=== PATIENT | male | born 1985 | race Caucasian/White ===

== ENCOUNTER 2021-10-16 10:38 | Emergency (ER) | payer BC, SELFPAY ==
[2021-10-16 11:04] VITALS: BP 149/79; PULSE 64; RESP 14; TEMP 36.8; O2SAT 98; BMI 42.2
--- NOTE | 2021-10-16 12:17 | W.ED.ANXIETY ---
HPI - Anxiety General: Chief Complaint: Anxiety Stated Complaint: Anxiety Time Seen by Provider: 10/16/21 11:55 Source: patient and family Mode of arrival: ambulatory Limitations: no limitations History of Present Illness: Patient is a 36-year-old male who presents to ED today with complaints of, what he has been told is, anxiety. Patient has significant other state patient has had symptoms intermittently over the past year where he feels anxious, shaky, has some chest discomforts, some blurry vision, and dizziness. States they have received multiple work-ups from specialists including neurology and cardiology and have been cleared from them and have been told it is secondary to anxiety. Patient states he takes xanex, fluoxetine, and olanzapine. He states his PCP/psychiatrist is slowly tapering him off his olanzapine. Patient states over the past few days he does not feel like his medications are working. He has complained of a headache and some dizziness. He does not have any chest pain, shortness of breath, difficulty breathing, palpitations currently. MD complaint: anxiety Onset (ago): year(s) Quality: intermittent Place: home History of similar episodes: Yes Provoking factors: none known Relieving factors: medication (states usually when they adjust his medications they work for 6-8 months) Exacerbating factors: nothing Associated symptoms: Reports headache(s); Deny chest pain, chills, confusion, fever(s), malaise, nausea, palpitations, syncope or vomiting Review of Systems Const: Denies: fever(s), chills, body aches, fatigue or malaise Card: Denies: chest pain, palpitations, irregular heart rhythm, edema, swelling of feet/ankles, lightheadedness, syncope, pre-syncope, dyspnea on exertion, orthopnea, leg pain with exertion or acrocyanosis Resp: Denies: dyspnea GI: Denies: abdominal pain, nausea, vomiting or diarrhea : Denies: flank pain or dysuria Musc: Denies: neck pain, back pain, extremity pain or joint pain Skin/Breast: Denies: rash Neuro: Reports: headache(s) and dizziness; Denies: numbness in extremities, weakness in extremities, sensory changes, difficulty walking, frequent falls or confusion Physical Exam Const: COMMON NORMALS: no acute distress, patient oriented x3, no limitations and alert GENERAL APPEARANCE: cooperative NUTRITIONAL APPEARANCE: obese ORIENTATION/CONSCIOUSNESS: Yes awake, Yes oriented to person, Yes oriented to place and Yes oriented to time HENMT: COMMON NORMALS: normocephalic and atraumatic HEAD & SCALP: normal to inspection, normocephalic and atraumatic Resp: COMMON NORMALS: normal respiratory effort and clear to auscultation bilaterally AUSCULTATION: clear to auscultation bilaterally Cardio: COMMON NORMALS: regular rate and regular rhythm RATE: regular rate RHYTHM: regular rhythm Extremity: COMMON NORMALS: normal to inspection, full ROM, capillary refill normal, no calf tenderness and no pedal edema GENERAL: Yes normal exam except as noted Neuro: JOHN COMA SCALE: document GCS findings Henefer coma scale eye opening: Spontaneous John coma scale verbal response: Orientated Henefer coma scale motor response: Obey commands John coma scale total score: 15 COMMON NORMALS: patient oriented x3, CN's II-XII intact bilaterally, moves all extremities, no focal motor deficits, no sensory deficits noted and gait normal SENSORIUM/ORIENTATION: Yes alert, Yes oriented to person, Yes oriented to place and Yes oriented to time Skin: COMMON NORMALS: no rashes or lesions noted GENERAL SKIN EXAM: no rashes or lesions noted Course Vital Signs: Vital signs: Vital Signs Temperature 98.2 F 10/16/21 11:04 Pulse Rate 64 10/16/21 15:15 Respiratory Rate 16 10/16/21 15:15 Blood Pressure 109/73 10/16/21 15:15 Pulse Oximetry 97 10/16/21 15:15 Oxygen Delivery Me thod 10/16/21 15:15 MDM - Anxiety Medical Decision Making Most of patient's symptoms seem fairly chronic for him. He was concerned in regards to the headache and dizziness. His vital signs are stable upon arrival. Work-up here is unremarkable. His head CT is negative. We discussed possibly increasing his fluoxetine however patient states he would like to follow-up with his PCP/psychiatrist for this. I think this is a reasonable plan. Patient has had very extensive specialty work-ups in regards to his symptoms and I do not feel like repeated evaluation from ED today is warranted. Return to ED precautions given. Lab Data : 10/16/21 13:16 10/16/21 13:[address] 10/16/21 13:03 IMPRESSION: No acute intracranial abnormality. Laboratory Results WBC 7.7 10^3/uL (4.0-10.0) 10/16/21 13:16 RBC 4.91 10^6/uL (4.1-5.3) 10/16/21 13:16 Hgb 15.2 g/dL (11.7-16.6) 10/16/21 13:16 Hct 44.7 % (42.0-52.0) 10/16/21 13:16 MCV 91.0 fl (80-94) 10/16/21 13:16 MCH 31.0 pg (28.0-34.0) 10/16/21 13:16 MCHC 34.0 g/dL (30.0-36.0) 10/16/21 13:16 RDW 13.2 % (12.1-15.1) 10/16/21 13:16 Plt Count 302 10^3/cmm (130-400) 10/16/21 13:16 MPV 9.1 fL (7.4-10.4) 10/16/21 13:16 Neut % (Auto) 80.1 % 10/16/21 13:16 Lymph % (Auto) 10.2 % 10/16/21 13:16 [place] % (Auto) 8.2 % 10/16/21 13:16 Eos % (Auto) 0.8 % 10/16/21 13:16 Baso % (Auto) 0.3 % 10/16/21 13:16 Neut # (Auto) 6.14 10^3/uL (1.8-7.7) 10/16/21 13:16 Lymph # (Auto) 0.8 10^3/uL (0.8-4.8) 10/16/21 13:16 [place] # (Auto) 0.6 10^3/uL (0.2-0.9) 10/16/21 13:16 Eos # (Auto) 0.1 10^3/uL (0.0-0.8) 10/16/21 13:16 Baso # (Auto) 0.0 10^3/uL (0.0-0.1) 10/16/21 13:16 Nucleated RBC % (auto) 0 % 10/16/21 13:16 Nucleated RBCs # 0.0 /100WBC 10/16/21 13:16 Sodium 139 mmol/L (136-145) 10/16/21 13:16 Potassium 4.4 mmol/L (3.5-5.1) 10/16/21 13:16 Chloride 104 mmol/L (98-107) 10/16/21 13:16 Carbon Dioxide 23 mmol/L (22-29) 10/16/21 13:16 Anion Gap 16.4 (5-19) 10/16/21 13:16 BUN 11 mg/dL (6-20) 10/16/21 13:16 Creatinine 0.6 mg/dL (0.7-1.2) L 10/16/21 13:16 GFR Calculation 150.8 mL/min (90-130) H 10/16/21 13:16 Glucose 99 mg/dL (65-115) 10/16/21 13:16 Calculated Osmolality 287 mOsm/kg (285-295) 10/16/21 13:16 Calcium 9.5 mg/dL (8.5-10.5) 10/16/21 13:16 Total Bilirubin 0.2 mg/dL (0.15-1.2) 10/16/21 13:16 AST 17 U/L (0-40) 10/16/21 13:16 ALT 29 U/L (0-41) 10/16/21 13:16 Alkaline Phosphatase 58 IU/L (40-130) 10/16/21 13:16 Total Protein 6.9 g/dL (6.6-8.7) 10/16/21 13:16 Albumin 4.1 g/dL (3.5-5.2) 10/16/21 13:16 Globulin 2.8 g/dL (1.3-4.6) 10/16/21 13:16 Urine Color Yellow (Yellow) 10/16/21 13:21 Urine Appearance Clear (CLEAR) 10/16/21 13:21 Urine pH 8 (5-7) H 10/16/21 13:21 Ur Specific [place] 1.010 (1.005-1.030) 10/16/21 13:21 Urine Protein Neg (Negative) 10/16/21 13:21 Urine Glucose (UA) 1+ (Normal) H 10/16/21 13:21 Urine Ketones Negative (Negative) 10/16/21 13:21 Urine Blood Neg (Negative) 08/08/22 13:21 Urine Nitrate Negative (Negative) 10/16/21 13:21 Urine Bilirubin Neg (Negative) 10/16/21 13:21 Prot Sulfosalicylic Acd Negative (Negative) 10/16/21 13:21 Urine Urobilinogen Norm mg/dL (Negative) 10/16/21 13:21 Ur Leukocyte Esterase Negative (Negative) 10/16/21 13:21 Discharge Plan Discharge Patient Disposition: Home Clinical Impression: Dizziness, Anxiety Condition: Stable Discharge Orders: Discharge ED (Routine); Ordered 10/16/21 Ordered By: Inocencia Rogers Coding Level of Care Code ED Computer Scientist for Wilmer Jones
[2021-10-16 12:53] VITALS: BP 122/76; PULSE 69; RESP 16; O2SAT 96
--- NOTE | 2021-10-16 13:03 | CTR_ITS ---
PROCEDURE INFORMATION: Exam: CT Head Without Contrast Exam date and time: 10/16/2021 2:31 PM Age: 36 years old Clinical indication: Pain; Headache not specified; Additional info: MCNULTY, dizziness TECHNIQUE: Imaging protocol: Computed tomography of the head without contrast. Radiation optimization: All CT scans at this facility use at least one of these dose optimization techniques: automated exposure control; mA and/or kV adjustment per patient size (includes targeted exams where dose is matched to clinical indication); or iterative reconstruction. COMPARISON: No relevant prior studies available. RADIATION DOSE METRICS: Total DLP (mGy-cm): 1028.18 FINDINGS: Brain: Normal. No hemorrhage. Unremarkable white matter. No mass effect. Cerebral ventricles: No ventriculomegaly. Paranasal sinuses: Visualized sinuses are unremarkable. No fluid levels. Mastoid air cells: Visualized mastoid air cells are well aerated. Bones/joints: Unremarkable. No acute fracture. Soft tissues: Unremarkable. CT/CT head wo con* [id number] IMPRESSION: No acute intracranial abnormality.
[2021-10-16 13:28] LABS: Add Urine Microscopic? NO; Charge for UA Resulting for Rev
[2021-10-16 13:34] LABS: Basophils % 0.3 %; Eosinophils # 0.1 10^3/uL (0.0-0.8); Eosinophils % 0.8 %; Hematocrit 44.7 % (42.0-52.0); Hemoglobin 15.2 g/dL (11.7-16.6); Lymphocytes # 0.8 10^3/uL (0.8-4.8); Lymphocytes % 10.2 %; Mean Platelet Volume 9.1 fL (7.4-10.4); Monocytes # 0.6 10^3/uL (0.2-0.9); Monocytes % 8.2 %; Neutrophils # 6.14 10^3/uL (1.8-7.7); Neutrophils % 80.1 %; Nucleated Red Blood Cells % 0 %; Platelet Count 302 10^3/cmm (130-400); Red Blood Count 4.91 10^6/uL (4.1-5.3); Red Cell Distribution Width 13.2 % (12.1-15.1); White Blood Count 7.7 10^3/uL (4.0-10.0)
[2021-10-16 13:53] LABS: Alanine Aminotransferase 29 U/L (0-41); Albumin Level 4.1 g/dL (3.5-5.2); Alkaline Phosphatase 58 IU/L (40-130); Anion Gap 16.4 (5-19); Aspartate Amino Transferase 17 U/L (0-40); Blood Urea Nitrogen 11 mg/dL (6-20); Calcium 9.5 mg/dL (8.5-10.5); Carbon Dioxide 23 mmol/L (22-29); Chloride 104 mmol/L (98-107); Globulin 2.8 g/dL (1.3-4.6); Glomerular Filtration Rate 150.8 mL/min (90-130); Glucose 99 mg/dL (65-115); Osmolality Calculated 287 mOsm/kg (285-295); Potassium 4.4 mmol/L (3.5-5.1); Sodium 139 mmol/L (136-145); Total Bilirubin 0.2 mg/dL (0.15-1.2); Total Protein 6.9 g/dL (6.6-8.7)
[2021-10-16 14:02] LABS: Bilirubin Urine Neg (Negative); Blood Urine Neg (Negative); Glucose Urine UA 1+ (Normal); Ketones Urine Negative (Negative); Leukocyte Esterase Urine Negative (Negative); Nitrate Urine Negative (Negative); Protein Urine Neg (Negative); Sulfosalicylic Acid Urine Negative (Negative); Urine Appearance Clear (CLEAR); Urine Color Yellow (Yellow); Urobilinogen Urine Norm (Negative); pH Urine 8 (5-7)
[2021-10-16] MEDS: meclizine 25 mg tablet 50 MG PO (14:43)
[2021-10-16 15:15] VITALS: BP 109/73; PULSE 64; RESP 16; O2SAT 97
== END 2021-10-16 16:30 | disposition home or self-care (01) ==
PROVIDERS: Emergency Provider Physician Assistant
DX: F41.9 Anxiety disorder, unspecified (principal); R42 Dizziness and giddiness
CPT/HCPCS: 70450; 80053; 81003; 85025; 99284; J8597